=== PATIENT | male | born 1970 | race Caucasian/White ===

== ENCOUNTER 2019-01-16 12:34 | Outpatient (REF) | payer BC, SELFPAY ==
[2019-01-17 13:06] LABS: Chlamydia Result Negative; GC Result Negative; Specimen Description URINE
== END 2019-01-16 12:54 ==
LOC: LBN 12:34
PROVIDERS: PCP Family Medicine; Visit Provider Family Medicine
DX: R30.0 Dysuria (principal); N39.0 Urinary tract infection, site not specified; Z11.3 Encounter for screening for infections with a predominantly sexual mode of transmission
CPT/HCPCS: 87491; 87591; 87086

== ENCOUNTER 2019-01-19 13:47 | Outpatient (CLI) | payer BC, SELFPAY ==
[2019-01-19 15:11] LABS: Bilirubin Negative (Negative); Blood Negative (Negative); Clarity Clear (Clear); Glucose Negative (Negative); Ketones Negative (Negative); Leukocyte Esterase Negative (Negative); Nitrite Negative (Negative); Specific Gravity >= 1.030 (1.005-1.025); Urobilinogen 0.2 EU/dL (Up TO 0.2)
[2019-01-19 15:37] LABS: Bacteria Rare HPF (Negative); C & S Indicated? Yes; Crystals Negative HPF (Negative); Epithelial Cells Negative HPF (Negative); Mucus Heavy (Negative); WBC 20-50 HPF (0-5)
[2019-01-20 10:32] LABS: Lyme Ab w Rflx to Lyme Confirm Negative
[2019-01-20 12:43] LABS: HIV-1/2 Ag & Ab Screen Negative (NEGAT)
[2019-01-21 22:52] LABS: West Nile Virus PCR, P Negative (Negative)
[2019-01-22 15:47] LABS: Anaplasma phagocytophilum Negative (Negative); B. miyamotoi PCR Negative (Negative); Babesia divergens/MO-1 Negative (Negative); Babesia duncani Negative (Negative); Babesia microti Negative (Negative); Ehrlichia chaffeensis Negative (Negative); Ehrlichia ewingii/canis Negative (Negative); Ehrlichia muris eauclairensis Negative (Negative)
== END 2019-01-19 14:07 ==
PROVIDERS: Family Medicine; PCP Family Medicine; Visit Provider Nurse Practitioner Family
DX: R53.83 Other fatigue (principal); M79.10 Myalgia, unspecified site; R30.0 Dysuria; Z11.4 Encounter for screening for human immunodeficiency virus [HIV]
CPT/HCPCS: 36415; 86652; 87389; 87798; 81003; 81015; 86618; 87086

== ENCOUNTER 2019-03-28 10:18 | Outpatient (CLI) | payer BC, SELFPAY ==
[2019-03-28 13:17] LABS: Calculated LDL 104 mg/dL; Cholesterol 161 mg/dL (<200); HDL Cholesterol 42 mg/dL (40-60); Triglyceride 75 mg/dL (<150)
== END 2019-03-28 10:38 ==
PROVIDERS: PCP Family Medicine; Visit Provider Family Medicine
DX: Z00.00 Encounter for general adult medical examination without abnormal findings (principal); Z13.220 Encounter for screening for lipoid disorders
CPT/HCPCS: 36415; 80061

== ENCOUNTER 2019-09-15 03:44 | Outpatient (CLI) | payer BC, SELFPAY ==
--- NOTE | 2019-09-15 08:11 | DI.RAD_ITS ---
EXAM: XR KNEE LT 3V AP,LAT,SADNY CLINICAL HISTORY: LEFT KNEE PAIN,M25.562 TECHNIQUE: COMPARISON: No exams were available for comparison FINDINGS: Three views were obtained. There is an ACL reconstruction with anchor screws in femur and tibia. Th ere is deformity of the inferior pole of the patella which appears to be chronic. Cartilaginous join t spaces appear fairly well maintained. Minimal scalloping of the the medial and lateral femoral con dyles noted which may be on a degenerative basis although the cartilaginous joint spaces appear fairl y well maintained. Minimal marginal osteophyte formation noted. IMPRESSION: Mild DJD.
== END 2019-09-15 04:04 ==
PROVIDERS: PCP Family Medicine; Visit Provider Family Medicine
DX: M25.562 Pain in left knee (principal); M17.12 Unilateral primary osteoarthritis, left knee
CPT/HCPCS: 73562

== ENCOUNTER 2019-10-12 09:35 | Outpatient (CLI) | payer BC, SELFPAY ==
--- NOTE | 2019-10-12 09:30 | DI.RAD_ITS ---
EXAM: XR KNEE RT 4V AP,LAT,SANDY,PAT CLINICAL HISTORY: right knee pain. TECHNIQUE: 2D digital imaging was performed. COMPARISON: CR XR KNEE LT 3V AP,LAT,SANDY from 09/15/2019 FINDINGS: BONES: No acute fracture is present. No bony destructive lesion is seen. JOINTS: The knee is normally aligned. No joint effusion is seen. SOFT TISSUE: Normal. IMPRESSION: Unremarkable radiographs of the right knee. DATA REPOSITORY: RADIATION DOSE DELIVERED:
== END 2019-10-12 09:55 ==
PROVIDERS: PCP Family Medicine; Referring Provider Family Medicine; Visit Provider Physician Assistant
DX: M25.561 Pain in right knee (principal)
CPT/HCPCS: 73564

== ENCOUNTER 2019-10-23 01:20 | Outpatient (CLI) | payer BC, SELFPAY ==
--- NOTE | 2019-10-23 06:00 | DI.MRI_ITS ---
EXAM: MR LOWER JOINT RT WO CLINICAL HISTORY: ?ACL TEAR, INTERNAL DERANGEMENT RT KNEE,PAIN,M23.91. TECHNIQUE: Multiplanar multisequence MRI was performed. COMPARISON: No exams were available for comparison FINDINGS: MR examination knee was performed according to the usual protocol. There is small knee joint effusion. There is tiny Yeung's cyst Patellofemoral joint and extensor mechanism: There is mildly abnormal signal of the patellar articula r cartilage with minimal cartilage surface irregularity at the apex and on the medial facet with hoang esponding minimal articular cartilage changes of trochlea. No significant bony signal abnormality of the patella. The medial and lateral retinacula appear intact. The suprapatellar and infrapatellar fat pads are unremarkable. No significant quadriceps tendon or patellar tendon abnormality. Medial tibiofemoral joint: No significant articular cartilage abnormality. Medial meniscus and attac hments appear normal. No significant collateral ligament complex injury. Lateral tibiofemoral joint: Articular cartilage is unremarkable. No tear of the lateral meniscus or attachments. No significant lateral collateral ligament complex injury. Cruciate ligaments: Minimal signal change at the tibial bony attachment of the ACL mildly abnormal si gnal in ACL adjacent to femoral attachment with perhaps minimal cystic change. No significant ACL te ar. No significant PCL tear. Small posterior ganglion cysts noted adjacent to tibial attachment of PCL do not appear to impinge or deform the PCL and there is normal intra ligamentous signal. IMPRESSION: No significant internal derangement. No ACL tear. Mild degenerative articular cartilage changes at the patellofemoral joint. DATA REPOSITORY:
== END 2019-10-23 01:40 ==
PROVIDERS: PCP Family Medicine; Visit Provider Student in an Organized Health Care Education/Training Program
DX: M17.11 Unilateral primary osteoarthritis, right knee; M67.461 Ganglion, right knee
CPT/HCPCS: 73721

== ENCOUNTER 2021-05-13 10:35 | Outpatient (CLI) | payer BC, SELFPAY ==
--- NOTE | 2021-05-13 10:15 | DI.RAD_ITS ---
Exam(s) XR KNEE LT 3V AP,LAT,SANDY EXAM: XR KNEE LT 3V AP,LAT,SANDY CLINICAL HISTORY: LEFT KNEE PAIN TECHNIQUE: COMPARISON: CR XR KNEE RT 4V AP,LAT,SANDY,PAT from 10/12/2019 FINDINGS: Three views were obtained. There is a prior ACL reconstruction with anchors in place in the distal f emur and proximal tibia. Cartilaginous joint spaces of the knee appear fairly well maintained. Ther e is a prominent inferior patellar enthesophyte. No other significant bony abnormality seen. IMPRESSION: No evidence of acute process. RADIATION DOSE DELIVERED: Total DLP
== END 2021-05-13 10:36 | disposition home or self-care (01) ==
LOC: DIORS 10:36
PROVIDERS: PCP Family Medicine; Referring Provider Family Medicine; Visit Provider Student in an Organized Health Care Education/Training Program
DX: M25.562 Pain in left knee (principal); Z98.890 Other specified postprocedural states
CPT/HCPCS: 73562

== ENCOUNTER → 2021-05-26 03:11 | Outpatient (CLI) | payer BC, SELFPAY ==
--- NOTE | 2021-05-26 06:30 | DI.MRI_ITS ---
Exam(s) MR LOWER JOINT LT WO EXAM: MR LOWER JOINT LT WO CLINICAL HISTORY: Left knee instability,PAIN,? ACL,M25.562,SPRAIN,S83.511A. TECHNIQUE: Multiplanar multisequence MRI was performed. COMPARISON: CR XR KNEE LT 3V AP,LAT,SANDY from 05/13/2021 FINDINGS: BONES: There is no fracture or contusion pattern. Hardware related to ACL repair in distal femur and proximal tibia with surrounding artifact. JOINTS: Articular cartilage is unremarkable. A small effusion is present. TENDONS: Extensor mechanism: Unremarkable. Medial retinaculum: Unremarkable. Lateral retinaculum: Unremarkable. Popliteus: Unremarkable. MUSCLES: Unremarkable. MENISCI: The medial meniscus is unremarkable. The lateral meniscus is unremarkable. SOFT TISSUES: Unremarkable. LIGAMENTS: Anterior Cruciate: Status post ACL repair which appears intact. Posterior Cruciate: Unremarkable. Medial Collateral:Unremarkable. Lateral Collateral: Unremarkable. IMPRESSION: Intact ACL graft. No evidence of meniscal tear or ligament tear. Small joint effusion. DATA REPOSITORY:
== END ==
PROVIDERS: PCP Family Medicine; Visit Provider Student in an Organized Health Care Education/Training Program
DX: M25.562 Pain in left knee (principal); M25.362 Other instability, left knee; M25.462 Effusion, left knee; Z98.890 Other specified postprocedural states
CPT/HCPCS: 73721

== ENCOUNTER 2021-07-17 19:10 | Outpatient (REF) | payer BC, SELFPAY ==
[2021-07-18 11:38] LABS: COVID-19 RT-PCR UVMMC Result Negative (Negative)
== END 2021-07-17 19:11 | disposition home or self-care (01) ==
LOC: LBN 19:10
PROVIDERS: PCP Family Medicine; Visit Provider Nurse Practitioner Family
DX: Z20.822 Contact with and (suspected) exposure to COVID-19 (principal)
CPT/HCPCS: U0003

== ENCOUNTER 2021-07-22 08:41 | Emergency (ER) | payer BC, SELFPAY ==
[2021-07-22] VITALS (14 sets, daily range): BP systolic 129–147; BP diastolic 75–96; PULSE 60–84; RESP 12–25; TEMP 36.4–36.7; O2SAT 97–100
--- NOTE | 2021-07-22 08:30 | DI.RAD_ITS ---
Exam(s) XR CHEST 2V PA LATERAL EXAM: XR CHEST 2V PA LATERAL CLINICAL HISTORY: cough, weakness, r/o pneumonia. TECHNIQUE: 2D digital imaging was performed. COMPARISON: CR ABD FLAT UPRIGHT PA CHEST from 01/23/2011 FINDINGS: 2 views: Heart size is normal. The mediastinum is not widened. Lungs are clear. No infiltrates nor pleural effusions. IMPRESSION: No acute pulmonary findings. DATA REPOSITORY: RADIATION DOSE DELIVERED:
--- NOTE | 2021-07-22 08:37 | ED.GENADUL_ITS ---
Discharge Plan Disposition Patient Disposition: [facility] Condition: Critical Discharge Details Clinical Impression: Acute ischemic left MCA stroke Primary Care Provider: Jake Love ED Provider: Carly Hurtado Home Meds and New Rx's Prescriptions: No Action albuterol sulfate [ProAir HFA] 90 mcg/actuation HFA aerosol inhaler 2 puff Inhalation Q4H PRN Qty: 1 6RF Discharge Data Discharge Date/Time-TO BE ENTERED AT DEPARTURE: 07/22/21 10:08 Medical Decision Making 09 -- 51-year-old male with no significant past medical history who presents with right-sided weakness, drooling, crying noted when son awoken at 740 this morning. Last known normal around 8 PM last night. It was reported that he recently returned from [place] 4 days ago and developed an upper respiratory infection since then. Records note that he also was seen at the PCP office for a tick bite 2 weeks ago but was thought to be unlikely related to Lyme due to short duration of tick present and no report of rash. It was also reported that he told work yesterday of right eyes blurry vision. EMS reported that he is currently nonverbal but protecting his airway. His vitals are within normal limits and has notable right-sided weakness and crying. Patient seen in the hallway immediately on arrival with EMS. He is awake and alert and able to follow some commands but not all. He has mild right-sided facial droop. He has right-sided weakness and holding right arm close to body. He is able to lift left leg on command but unable to squeeze left hand on command. Positive gag reflex. Patient sent immediately to radiology and radiologist noted a potential evolving left MCA stroke. Will send for stat CTA head and neck. Pain score of 19 mostly on right-sided facial palsy, right upper arm and leg weakness and global aphasia. 0940 --Case discussed with [facility] neurology Dr. Joyce who accepts patient transfer to the ED. Would like 300 mg of aspirin still and IV fluids. Discussed that patient has been protecting his airway and feeling some commands. No indication for intubation at this time. Family now at bedside and they have been informed. Patient has been informed of his diagnosis and appears to understand and is very tearful and crying but still unable to speak. Labs reviewed and unremarkable. Normal white blood cell count. Normal electrolytes. Troponin negative. CTA head and neck notes: IMPRESSION: 1. In this patient who has evidence of nonhemorrhagic infarct in the territory of the left middle cerebral artery, there is poor appearance of the contrast column in the upper neck.? Although the left carotid bifurcation appears unremarkable, as does the proximal left ICA) at the, there is poor contrast column seen in the upper aspect of the left ICA in the neck and skull base.? There is reconstitution of flow higher up in the cavernous sinus..? Recommend follow-up MRI/MRA. Images pushed to [facility] for review. 1000 -- EMS here to transport patient. Airway remains intact and he is hemodynamically stable. Medical Records Medical records reviewed: Yes I reviewed the patient's medical records. Imaging Data Radiologic Study: Radiologist's impression: CT HEAD - STROKE PROTOCOL CLINICAL HISTORY: ? R sided weakness, r/o acute cva. ? TECHNIQUE:? Imaging Protocol: Axial computed tomography images with coronal and sagittal reformatted images were created and reviewed COMPARISON:? No exams were available for comparison FINDINGS: ?There are no skull fractures.? There is a fluid level in left maxillary sinus consistent with acute sinusitis.? Remainder of the paranasal sinuses are clear as are the mastoid air cells. There is no evidence of intracranial hemorrhage, intra or extra-axial. There is subtle abnormal area of hypodensity in the territory left middle cerebral artery above the sylvian fissure.? There is also a hyperdense distal branch of the middle cerebral artery in this region which may indicate the presence of intraluminal thrombus. IMPRESSION: There findings consistent with nonhemorrhagic infarct in the territory left middle cerebral artery.? There is hyperdensity in distal branch of the left middle cerebral artery within the sylvian fissure region, possibly indicating culprit intraluminal thrombus at this level. XR CHEST 2V PA ? LATERAL CLINICAL HISTORY: ? cough, weakness, r/o pneumonia. ? TECHNIQUE:? 2D digital imaging was performed. COMPARISON:? CR ABD FLAT UPRIGHT PA CHEST from 01/23/2011 FINDINGS: 2 views: Heart size is normal.? The mediastinum is not widened. Lungs are clear.? No infiltrates nor pleural effusions. IMPRESSION: No acute pulmonary findings. CT BRAIN ? NECK CTA CLINICAL HISTORY: ? possible L MCA stroke, r/o occlusion. ? TECHNIQUE:? Imaging Protocol:? Axial CT angiography was performed with multi- slice acquisition and multi-planar and/or 3D reconstructions. CONTRAST MATERIAL:? Intravenous: Omnipaque 350 Contrast volume:structured data in ml COMPARISON:? CT CT HEAD - STROKE PROTOCOL from 07/22/2021 FINDINGS: CTA Neck W: Aortic arch anatomy: The aortic arch anatomy is conventional. Anterior circulation: Both common carotid arteries are patent. On the right side there is no significant atherosclerotic narrowing at the level the carotid bulb and proximal internal carotid artery in the right ICA is tortuous in the neck but patent. On the left side the carotid bifurcation is patent as is the proximal left ICA without significant stenosis.? However, in the upper neck the contrast column is thin and faint in the upper left ICA as well as within the left carotid canal. Posterior circulation: Vertebral arteries arising conventional fashion off the subclavian arteries.? Within the foramen transverse area in the left vertebral artery is dominant.? At the skull base the dominant left vertebral artery is the main contributor to the formation of the basilar artery. CTA Brain W: Anterior circulation: Right internal carotid artery is patent in the skull base and cavernous sinus.? Supraclinoid aspect is patent.? No aneurysm.? The left internal carotid artery exhibits better flow in the cavernous sinus than in the left carotid canal and the left cavernous sinus is patent as is the supraclinoid aspect. Both A1 segments are patent.? Both anterior cerebral arteries are patent.? There is no aneurysm at the level of the anterior communicating artery.. Right middle cerebral artery appears patent.? Left middle cerebral artery also appears patent. Posterior circulation: Basilar artery ascends in the midline.? Distally gives off superior cerebellar arteries and above this level terminates as patent left posterior cerebral artery.? Right posterior cerebral artery also receives significant flow from posterior communicating artery on the right side of the [id number].? There is no aneurysm of the tip of the basilar artery nor elsewhere in the [id number]. CT BRAIN: There is no evidence of intracranial hemorrhage, mass effect, or shift of midline structures.? There are no extra-axial fluid collections.? Ventricles are not enlarged or shifted.? There are no ring enhancing lesions in the brain and no abnormal meningeal enhancement. There is area of hypodensity in territory left middle cerebral artery consistent with developing infarct in the territory left middle cerebral artery. IMPRESSION: 1. In this patient who has evidence of nonhemorrhagic infarct in the territory of the left middle cerebral artery, there is poor appearance of the contrast column in the upper neck.? Although the left carotid bifurcation appears unremarkable, as does the proximal left ICA) at the, there is poor contrast column seen in the upper aspect of the left ICA in the neck and skull base.? There is reconstitution of flow higher up in the cavernous sinus..? Recommend follow-up MRI/MRA. Lab Data Lab results reviewed: Yes I reviewed the patient's lab results. Labs: Laboratory Tests Range/Units 07/22/21 07/22/21 09:05 09:05 WBC (4.4-10.8) 10^3/uL 10.72 RBC (4.36-5.78) 10^6/uL 4.93 Hgb (13.5-17.5) g/dL 14.6 Hct (40.0-50.0) % 43.4 MCV (80-95) fL 88 MCH (27.0-33.0) pg 29.6 MCHC (32.0-36.0) % 33.6 RDW (11.8-14.1) % 12.3 Plt Count (130-400) 10^3/uL 259 MPV (8.0-11.0) fL 9.2 Immature Gran % 0.5 Neutrophils % 78.9 Lymphocytes % 12.9 Monocytes % 6.1 Eosinophils % 1.2 Basophils % 0.4 Nucleated RBC % (0.0-0.3) % 0.0 Absolute Neutrophils (1.2-6.7) 10^3/uL 8.47 H Absolute Lymphocytes (1.2-3.4) 10^3/uL 1.38 Absolute Monocytes (0.1-0.8) 10^3/uL 0.65 Absolute Eosinophils (0.0-0.7) 10^3/uL 0.13 Absolute Basophils (0.0-0.2) 10^3/uL 0.04 Sodium (136-145) mmol/L 140 Potassium (3.5-5.1) mmol/L 3.7 Chloride (98-107) mmol/L 105 Carbon Dioxide (21.0-32.0) mmol/L 26.9 Anion Gap (3-11) mmol/L 8.1 BUN (7-18) mg/dL 23 H Creatinine (0.70-1.30) mg/dL 1.1 Estimated GFR/1.73 m2 (mL/min/1.73m2) >= 60.00 Glucose (74-106) mg/dL 104 Calcium (8.5-10.1) mg/dL 8.1 L Magnesium (1.8-2.4) mg/dL 2.1 Total Bilirubin (0.2-1.0) mg/dL 0.4 AST (15-37) U/L 24 ALT (16-63) U/L 35 Alkaline Phosphatase (46-116) U/L 98 Troponin I (<or=60) ng/L < 50 Total Protein (6.4-8.2) g/dL 7.0 Albumin (3.4-5.0) g/dL 3.8 ECG Data Attestation: I personally reviewed and interpreted this ECG (s) as follows: Interpretation: rate of 64, sinus, normal axis, no STEMI. HPI General Mode of arrival: EMS . Date/Time Provider Initiated Documentation: 07/22/21 08:42 . Limitations to Documentation: altered mental status and physical limitation . Information obtained by: family and EMS . HPI Narrative: Patient is a 51-year-old male with no significant past medical history who presents as a stroke alert per EMS. EMS reported that children called 911 for altered mental status, drooling and right-sided weakness. Son reports that he checked on patient at 7:45 AM to wake him and he was unable to speak and had right-sided weakness and was crying. He states at that time he called 911. Ex- is also in the emergency department who notes that patient drove with his 2 sons to [place] for spring break last week and returned 4 days ago. He was seen at the PCP office 5 days ago for upper respiratory infection symptoms. Son states he saw little round red pills near the patient this morning but states t here were only a couple missing and he thinks. He was taking them for his cough and cold symptoms. Ex- reports that she spoke to patient yesterday and his voice sounded hoarse. She also reports that his coworker told her that he had complained of right eye blurry vision yesterday. Son states that patient was feeling sick yesterday with cough and cold symptoms but there was no report of weakness or difficulty speaking. He states he was his normal self at 8 PM last night when he went to bed. There is no report of any head injury. There is no report of fever, vomiting, diarrhea or drug use. Related Data Home Medications Medication Instructions Recorded Confirmed albuterol sulfate 90 mcg/actuation 2 puff INHALATION Q4H PRN #1 01/16/19 07/17/21 aerosol inhaler (ProAir HFA) inhaler Previous Rx's Medication Instructions Recorded albuterol sulfate 90 mcg/actuation 2 puff INHALATION Q4H PRN #1 01/16/19 aerosol inhaler (ProAir HFA) inhaler Allergies Allergy/AdvReac Type Severity Reaction Status Date / Time cat dander Allergy Intermediate asthma Verified 07/17/21 11:15 like reaction feathers Allergy Intermediate asthma Verified 07/17/21 11:15 like reaction General Stated Complaint: AMS/LOC WILDER: 2 Review of Systems Unobtainable due to mental status Constitutional Constitutional: Denies chills, Denies excessive sweating, Denies fatigue, Denies fever(s), Denies weakness and Denies weight loss Eyes Eyes: Reports system reviewed and no additional complaints, except as documented and Denies blurry vision ENT Ears, Nose, Mouth, and Throat: Denies vertigo, Denies dizziness, Denies otalgia, Denies nasal congestion, Denies sore throat and Denies throat swelling Cardiovascular Cardiovascular: Denies chest pain, Denies syncope, Denies rapid heart rate and Denies dyspnea Respiratory Respiratory: Denies chest congestion, Denies cough, Denies pain on inspiration and Denies dyspnea Gastrointestinal Gastrointestinal: Denies abdominal pain, Denies diarrhea and Denies vomiting Genitourinary Genitourinary: Denies hematuria, Denies dysuria and Denies flank pain Musculoskeletal Musculoskeletal: Denies back pain and Denies joint swelling Integumentary/Breasts Skin/Breast: Denies lesions and Denies rash Neurologic Neurologic: Denies behavioral changes, Denies confusion, Denies vertigo, Denies dizziness, Denies syncope, Denies localized weakness and Denies weakness Psychiatric Psychiatric: Denies behavioral changes, Denies confusion and Denies depression Endocrine Endocrine: Denies excessive sweating and Denies fatigue Hematologic/Lymphatic Hematologic/Lymphatic: Denies easy bruising and Denies lymphadenopathy Allergic/Immunologic Allergic/Immunologic: Denies throat swelling PFSH All Active Problems (Updated 07/22/21 @ 09:55 by Carly Hurtado DO) Acute ischemic left MCA stroke (Acute) Left ACL tear (Acute) Tick bite (Acute) Fish customer success manager/Forester, 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 Emiliano PALACIOS Family History Father , 84 Stroke Brother Asthma Maternal Grandfather , 75 Neoplasm Paternal Grandfather Stroke Neoplasm Maternal Grandmother , 86 Neoplasm Paternal Grandmother , 87 Stroke Mother No problems noted. Sister No problems noted. Sister No problems noted. Sister No problems noted. Brother No problems noted. Brother No problems noted. Son No problems noted. Son No problems noted. Social History Smoking/Tobacco Use Status: Current-Occasional Tobacco Type: cigarettes Second Hand Exposure: Yes Smoking risk assessment performed?: Yes Alcohol Intake: current Alcohol Intake frequency: a few times a week Alcohol type: beer, wine and hard liquor Drug use: Rarely Substance use type: marijuana Caregiver/Support person: No Household members: children Housing: house Communication Needs: None Pets and animals: Yes Pets and animals: dog(s) Sexually active: No Do you think of yourself as: straight/heterosexual Current gender identity: male What is your relationship status?: How often do you talk on the phone with friends or family?: three or more times per week How often do you get together with friends or relatives?: three or more times per week How often do you attend jewish or moravian services?: 1-3 times per year Do you belong to any clubs or organized social groups?: yes Panel score (0-1 are the most socially isolated patients): 2 What type of physical activity do you participate in: walking Duration: 30-45 minutes/day Frequency: daily Petrona/Presybeterian: agnostic Special petrona needs: No Seatbelt use: always Drive intox or ride w/intox full service vending driver: No Do you feel safe at home: Yes Do you feel safe in your relationship?: Yes Exam Const General: cooperative and other (tearful) Orientation: alert and awake HENMT Head: normal to inspection Ears: hearing grossly normal bilaterally, external ears normal and TM's normal bilaterally General nose exam: external nose normal Face and sinus: normal facial exam Mouth: oral mucosae normal and other (+ gag reflex) Teeth and gingiva: dentition normal Throat: posterior oropharynx normal Eyes General: appearance normal, both eyes and all related structures Eyelids: eyelids normal Pupils: PERRL EOM: EOM intact bilaterally Neck Neck: normal visual inspection Lymphatic: no lymphadenopathy noted Chest Chest: normal inspection of the chest Resp Effort & Inspection: normal respiratory effort and able to speak in complete sentences Auscultation: clear to auscultation bilaterally Cardio Rate: regular rate Rhythm: regular rhythm GI Inspection: normal to inspection Palpation: soft, not firm, no guarding, no hepatosplenomegaly, no masses and nontender Auscultation: normal bowel sounds Back/Spine/Pelvis Back: no CVA tenderness Skin General skin exam: no rashes or lesions noted Neuro General: patient alert and patient awake Cognition: normal cognition Other: Able to follow some commands. Able to close eyes on command. PERRLA. Able to lift left arm and leg spontaneously. Unable to lift right arm and right leg. Holding right arm close to body. Extrem General: normal to inspection, full ROM and capillary refill normal Psych Appearance: grossly normal Mental Status: mental status grossly normal Speech and Movement: speech and movement normal Affect: normal affect Thought Process: normal Critical Care Time Critical Care Time Critical Care Time: Yes Total Critical Care Time: 70 Attestation: I spent 70 minutes of critical care time with this patient. This does not include time spent on separately reported billable procedures.
--- NOTE | 2021-07-22 08:46 | DI.CT_ITS ---
Exam(s) CT HEAD - STROKE PROTOCOL EXAM: CT HEAD - STROKE PROTOCOL CLINICAL HISTORY: R sided weakness, r/o acute cva. TECHNIQUE: Imaging Protocol: Axial computed tomography images with coronal and sagittal reformatted images were created and reviewed COMPARISON: No exams were available for comparison FINDINGS: There are no skull fractures. There is a fluid level in left maxillary sinus consistent with acute sinusitis. Remainder of the paranasal sinuses are clear as are the mastoid air cells. There is no evidence of intracranial hemorrhage, intra or extra-axial. There is subtle abnormal area of hypodensity in the territory left middle cerebral artery above the s ylvian fissure. There is also a hyperdense distal branch of the middle cerebral artery in this regio n which may indicate the presence of intraluminal thrombus. IMPRESSION: There findings consistent with nonhemorrhagic infarct in the territory left middle cerebral artery. There is hyperdensity in distal branch of the left middle cerebral artery within the sylvian fissure region, possibly indicating culprit intraluminal thrombus at this level. Findings called to ER provider. RADIATION DOSE DELIVERED: 774.85mGy.cm Total DLP DATA REPOSITORY: All CT scans at this facility are submitted to the National Radiology Data Registry (NRDR) Dose Index Registry (DIR) with the [employer] (ACR). RADIATION OPTIMIZATION: All CT scans at this facility use at least one of these dose optimization te chniques: automated exposure control; mA and/or kV adjustment per patient size (includes targeted exa ms where dose is matched to clinical indication); or iterative reconstruction.
--- NOTE | 2021-07-22 09:00 | RT.EKG_ITS ---
APPROVED REPORT Exam: Resting ECG Reason for Exam: stroke symptoms Patient Location: E HR:64 bpm ECG Measurements Heart Rate [address] 170 P 48 QRSd 104 QRS 26 QT 415 T 29 QTc 428 Conclusion Sinus rhythm...normal P axis, V-rate 60- 99. Sinus. Normal axis. No STEMI. I have reviewed and interpreted ECG and agree with software generated interpretation.
[2021-07-22 09:17] LABS: Abs Immature Grans 0.05 10^3/uL (0.0-0.06); Absolute Basophil Count 0.04 10^3/uL (0.0-0.2); Absolute Eosinophil Count 0.13 10^3/uL (0.0-0.7); Absolute Lymphocyte Count 1.38 10^3/uL (1.2-3.4); Absolute Monocyte Count 0.65 10^3/uL (0.1-0.8); Absolute Neutrophil Count 8.47 10^3/uL (1.2-6.7); Basophils % 0.4; Eosinophils % 1.2; HCT 43.4 % (40.0-50.0); HGB 14.6 g/dL (13.5-17.5); Immature Grans % 0.5; Lymphocytes % 12.9; MCH 29.6 pg (27.0-33.0); MCHC 33.6 % (32.0-36.0); MCV 88 fL (80-95); MPV 9.2 fL (8.0-11.0); Monocytes % 6.1; Neutrophils % 78.9; Platelet Count 259 10^3/uL (130-400); RBC 4.93 10^6/uL (4.36-5.78); RDW 12.3 % (11.8-14.1); RDW-SD 40.3 fL; WBC 10.72 10^3/uL (4.4-10.8)
--- NOTE | 2021-07-22 09:33 | DI.CT_ITS ---
Exam(s) CT BRAIN NECK CTA EXAM: CT BRAIN NECK CTA CLINICAL HISTORY: possible L MCA stroke, r/o occlusion. TECHNIQUE: Imaging Protocol: Axial CT angiography was performed with multi-slice acquisition and mu lti-planar and/or 3D reconstructions. CONTRAST MATERIAL: Intravenous: Omnipaque 350 Contrast volume:structured data in ml COMPARISON: CT CT HEAD - STROKE PROTOCOL from 07/22/2021 FINDINGS: CTA Neck W: Aortic arch anatomy: The aortic arch anatomy is conventional. Anterior circulation: Both common carotid arteries are patent. On the right side there is no significant atherosclerotic narrowing at the level the carotid bulb and proximal internal carotid artery in the right ICA is tortuous in the neck but patent. On the left side the carotid bifurcation is patent as is the proximal left ICA without significant st enosis. However, in the upper neck the contrast column is thin and faint in the upper left ICA as we ll as within the left carotid canal. Posterior circulation: Vertebral arteries arising conventional fashion off the subclavian arteries. Within the foramen dominguez sverse area in the left vertebral artery is dominant. At the skull base the dominant left vertebral artery is the main contributor to the formation of the basilar artery. CTA Brain W: Anterior circulation: Right internal carotid artery is patent in the skull base and cavernous sinus. Supraclinoid aspect i s patent. No aneurysm. The left internal carotid artery exhibits better flow in the cavernous sinus than in the left carotid canal and the left cavernous sinus is patent as is the supraclinoid aspect. Both A1 segments are patent. Both anterior cerebral arteries are patent. There is no aneurysm at th e level of the anterior communicating artery.. Right middle cerebral artery appears patent. Left middle cerebral artery also appears patent. Posterior circulation: Basilar artery ascends in the midline. Distally gives off superior cerebellar arteries and above thi s level terminates as patent left posterior cerebral artery. Right posterior cerebral artery also re ceives significant flow from posterior communicating artery on the right side of the [id number] . There is no aneurysm of the tip of the basilar artery nor elsewhere in the [id number]. CT BRAIN: There is no evidence of intracranial hemorrhage, mass effect, or shift of midline structures. There are no extra-axial fluid collections. Ventricles are not enlarged or shifted. There are no ring enh ancing lesions in the brain and no abnormal meningeal enhancement. There is area of hypodensity in territory left middle cerebral artery consistent with developing infa rct in the territory left middle cerebral artery. IMPRESSION: 1. In this patient who has evidence of nonhemorrhagic infarct in the territory of the left middle cer ebral artery, there is poor appearance of the contrast column in the upper neck. Although the left c arotid bifurcation appears unremarkable, as does the proximal left ICA) at the, there is poor contras t column seen in the upper aspect of the left ICA in the neck and skull base. There is reconstitutio n of flow higher up in the cavernous sinus.. Recommend follow-up MRI/MRA. Findings discussed with ER provider. RADIATION DOSE DELIVERED: 331.37mGy.cm Total DLP DATA REPOSITORY: All CT scans at this facility are submitted to the National Radiology Data Registry (NRDR) Dose Index Registry (DIR) with the [employer] (ACR). RADIATION OPTIMIZATION: All CT scans at this facility use at least one of these dose optimization te chniques: automated exposure control; mA and/or kV adjustment per patient size (includes targeted exa ms where dose is matched to clinical indication); or iterative reconstruction.
[2021-07-22 09:38] LABS: ALT 35 U/L (16-63); AST 24 U/L (15-37); Albumin 3.8 g/dL (3.4-5.0); Alkaline Phosphatase 98 U/L (46-116); Anion Gap 8.1 mmol/L (3-11); BUN 23 mg/dL (7-18); Bilirubin, Total 0.4 mg/dL (0.2-1.0); CO2 26.9 mmol/L (21.0-32.0); CREATININE 1.1 mg/dL (0.70-1.30); Calcium 8.1 mg/dL (8.5-10.1); Chloride 105 mmol/L (98-107); Glucose 104 mg/dL (74-106); Magnesium 2.1 mg/dL (1.8-2.4); Potassium 3.7 mmol/L (3.5-5.1); Sodium 140 mmol/L (136-145); Troponin I < 50 ng/L (<or=60)
[2021-07-22] MEDS: Normal Saline 1,000 ML 1000 ML IV (09:46)
[2021-07-22] MEDS: Aspirin 300 MG SUPP PR (09:46)
[2021-07-22 10:18] LABS: COVID-19 PCR Negative (Negative); Influenza A PCR Negative (Negative); Influenza B PCR Negative (Negative); RSV PCR Negative (Negative)
--- NOTE | 2021-07-22 10:54 | NUR.NOTE ---
Nursing Note: COVID result faxed to [facility]. Mary Dykes
[2021-07-23 10:53] LABS: Lyme Ab w Rflx to Lyme Confirm Negative (Negative)
[2021-07-24 22:23] LABS: Anaplasma phagocytophilum Negative (Negative); B. miyamotoi PCR Negative (Negative); Babesia divergens/MO-1 Negative (Negative); Babesia duncani Negative (Negative); Babesia microti Negative (Negative); Ehrlichia chaffeensis Negative (Negative); Ehrlichia ewingii/canis Negative (Negative); Ehrlichia muris eauclairensis Negative (Negative)
== END 2021-07-22 10:08 | disposition short-term general hospital (02) ==
LOC: ER 11:43
PROVIDERS: Emergency Provider Physician Assistant; PCP Family Medicine
DX: I63.512 Cerebral infarction due to unspecified occlusion or stenosis of left middle cerebral artery (principal); R29.810 Facial weakness; G81.91 Hemiplegia, unspecified affecting right dominant side; R47.01 Aphasia; Z72.0 Tobacco use
CPT/HCPCS: 36415; 36416; 70496; 70498; 80053; 82962; 87637; 87798; 93005; 96360; 99291; 70450; 71046; 83735; 84484; 85025; 86618; 93010

== ENCOUNTER 2022-06-04 19:09 | Outpatient (REF) | payer BC, SELFPAY ==
[2022-06-04 21:14] LABS: Bilirubin Negative (Negative); Blood Negative (Negative); Clarity Clear (Clear); Glucose Negative (Negative); Ketones Negative (Negative); Leukocyte Esterase Negative (Negative); Nitrite Negative (Negative); Urobilinogen 0.2 mg/dL (Up to 0.2)
== END 2022-06-04 19:10 | disposition home or self-care (01) ==
LOC: LBN 19:09
PROVIDERS: PCP Family Medicine; Visit Provider Physician Assistant
DX: R35.0 Frequency of micturition (principal); R39.15 Urgency of urination
CPT/HCPCS: 81003

== ENCOUNTER 2022-10-13 03:29 | Outpatient (CLI) | payer BC, SELFPAY ==
[2022-10-14 10:20] LABS: Lyme Ab w Rflx to Lyme Confirm Negative (Negative)
[2022-10-16 17:39] LABS: Anaplasma phagocytophilum Negative (Negative); B. miyamotoi PCR Negative (Negative); Babesia divergens/MO-1 Negative (Negative); Babesia duncani Negative (Negative); Babesia microti Negative (Negative); Ehrlichia chaffeensis Negative (Negative); Ehrlichia ewingii/canis Negative (Negative); Ehrlichia muris eauclairensis Negative (Negative)
== END 2022-10-13 03:30 | disposition home or self-care (01) ==
LOC: LBO 03:29
PROVIDERS: PCP Family Medicine; Visit Provider Family Medicine
DX: W57.XXXA Bitten or stung by nonvenomous insect and other nonvenomous arthropods, initial encounter (principal); Z11.9 Encounter for screening for infectious and parasitic diseases, unspecified
CPT/HCPCS: 36415; 87798; 86618

== ENCOUNTER 2022-12-19 15:50 | Outpatient (REF) | payer BC, SELFPAY ==
[2022-12-19 16:03] LABS: Abs Immature Grans 0.01 10^3/uL (0.0-0.06); Absolute Basophil Count 0.03 10^3/uL (0.0-0.2); Absolute Eosinophil Count 0.13 10^3/uL (0.0-0.7); Absolute Lymphocyte Count 1.46 10^3/uL (1.2-3.4); Absolute Neutrophil Count 3.55 10^3/uL (1.2-6.7); Basophils % 0.5; Eosinophils % 2.3; HCT 47.3 % (40.0-50.0); HGB 15.5 g/dL (13.5-17.5); Immature Grans % 0.2; Lymphocytes % 26.2; MCH 29.4 pg (27.0-33.0); MCHC 32.8 % (32.0-36.0); MCV 90 fL (80-95); MPV 9.8 fL (8.0-11.0); Monocytes % 7.2; Neutrophils % 63.6; Platelet Count 286 10^3/uL (130-400); RBC 5.27 10^6/uL (4.36-5.78); RDW 13.2 % (11.8-14.1); RDW-SD 43.8 fL; WBC 5.58 10^3/uL (4.4-10.8)
[2022-12-19 16:34] LABS: ALT 31 U/L (16-63); AST 22 U/L (15-37); Albumin 3.9 g/dL (3.4-5.0); Alkaline Phosphatase 73 U/L (46-116); Anion Gap 9.7 mmol/L (3-11); BUN 17 mg/dL (7-18); Bilirubin, Total 0.4 mg/dL (0.2-1.0); CO2 28.3 mmol/L (21.0-32.0); Calcium 9.5 mg/dL (8.5-10.1); Chloride 104 mmol/L (98-107); Estimated GFR 91.69 (mL/min/1.73m2); Glucose 99 mg/dL (74-106); Potassium 4.3 mmol/L (3.5-5.1); Sodium 142 mmol/L (136-145); Total Protein 6.9 g/dL (6.4-8.2)
[2022-12-20 11:00] LABS: ESR (LRH) 6 mm/hr
[2022-12-21 12:51] LABS: IgA 272 mg/dL (85-499); Interpretation (See Note); Tissue Transglutaminase IgA <1.2 U/mL (<4.0)
== END 2022-12-19 15:51 | disposition home or self-care (01) ==
LOC: LBN 15:50
PROVIDERS: PCP Family Medicine; Visit Provider Nurse Practitioner Family
DX: R19.7 Diarrhea, unspecified (principal)
CPT/HCPCS: 80053; 82784; 83516; 85652; 85025

== ENCOUNTER 2022-12-21 18:58 | Outpatient (REF) | payer BC, SELFPAY ==
[2022-12-21 18:36] LABS: C Diff PCR Negative (Negative)
[2022-12-23 12:43] LABS: Campylobacter PCR Negative (Negative); Salmonella PCR Negative (Negative); Shiga Toxin PCR Negative (Negative); Shigella/Enteroinvasive Ecoli Negative (Negative)
== END 2022-12-21 18:59 | disposition home or self-care (01) ==
LOC: LBN 18:58
PROVIDERS: PCP Family Medicine; Visit Provider Nurse Practitioner Family
DX: R19.7 Diarrhea, unspecified (principal)
CPT/HCPCS: 87329; 87493; 87505; 87177

== ENCOUNTER 2023-01-25 10:38 | Outpatient (REF) | payer BC, SELFPAY ==
[2023-01-28 16:30] LABS: Calprotectin <50.0 mcg/g
[2023-01-28 17:15] LABS: Pancreatic Elastase, F 224 mcg/g
== END 2023-01-25 10:39 | disposition home or self-care (01) ==
LOC: LBN 10:38
PROVIDERS: PCP Family Medicine; Visit Provider Nurse Practitioner Family
DX: R19.7 Diarrhea, unspecified (principal); R14.0 Abdominal distension (gaseous); R19.4 Change in bowel habit
CPT/HCPCS: 82656; 83993

== ENCOUNTER 2023-10-19 15:26 | Outpatient (REF) | payer BC, SELFPAY | END 2023-10-19 15:27 | disposition home or self-care (01) | LOC: LBN 15:26 | PROVIDERS: PCP Family Medicine; Visit Provider Nurse Practitioner Family | DX: L98.9 Disorder of the skin and subcutaneous tissue, unspecified (principal); B96.89 Other specified bacterial agents as the cause of diseases classified elsewhere | CPT/HCPCS: 87077; 87070; 87186; 87205 ==

== ENCOUNTER 2024-06-25 15:28 | Emergency (ER) | payer BC, SELFPAY ==
[2024-06-25] VITALS (35 sets, daily range): BP systolic 125–147; BP diastolic 72–98; PULSE 59–71; RESP 11–24; TEMP 37.1; O2SAT 92–100
--- NOTE | 2024-06-25 15:30 | DI.CT_ITS ---
Exam(s) CT BRAIN NECK CTA EXAM: CT BRAIN NECK CTA CLINICAL HISTORY: Stroke, Hx L. MCA/carotid, now R. eye vision badillo. TECHNIQUE: Imaging Protocol: Axial CT angiography was performed with multi-slice acquisition and mu lti-planar and MIP reconstructions. CONTRAST MATERIAL: Intravenous: Omnipaque 350 Contrast volume:70 mL COMPARISON: CT CT BRAIN NECK CTA from 07/22/[address] HEAD - STROKE PROTOCOL from 07/22/2021 FINDINGS: CT Head W/O and W contrast: Ventricles and Extra axial spaces: Normal in size and morphology for the patient's age. Hemorrhage: None. Cerebral parenchyma: Old left MCA infarct. No evidence of acute infarct or mass. Midline shift: None. Brainstem/Cerebellum: No acute findings.. Calvarium: Normal. Visualized Paranasal sinuses/Mastoids: Clear. Soft Tissues: Unremarkable. Enhancement: Normal. CTA Brain W: Internal Carotid Arteries: Petrous: Normal. Cavernous: Normal. Cerebral: Normal. Middle Cerebral Arteries: Right: No aneurysm, occlusion or significant stenosis. Left: No aneurysm, occlusion or significant stenosis. Anterior Cerebral Arteries: Right: No aneurysm, occlusion or significant stenosis. Left: No aneurysm, occlusion or significant stenosis. Posterior cerebral Arteries: Right: No aneurysm, occlusion or significant stenosis. Left: No aneurysm, occlusion or significant stenosis. Vertebral Arteries: Right: No aneurysm, occlusion or significant stenosis. Left: No aneurysm, occlusion or significant stenosis. Basilar Artery: No aneurysm, occlusion or significant stenosis. CTA Neck W: Common Carotid: Right: No dissection, occlusion or significant stenosis. Left: No dissection, occlusion or significant stenosis. External Carotid: Right: No dissection, occlusion or significant stenosis. Left: No dissection, occlusion or significant stenosis. Internal Carotid: No significant atherosclerotic changes. Right: Tortuous in the midportion. No dissection, occlusion or significant stenosis. Left: No dissection, occlusion or significant stenosis. Vertebral Artery: Right: No dissection, occlusion or significant stenosis. Left: No dissection, occlusion or significant stenosis. Lung Apices: No acute findings. Bones: No acute abnormality. Degenerative changes in the cervical spine. Soft Tissues: Normal. IMPRESSION: 1. CTA brain: No evidence of stenosis, occlusion or aneurysm. 2. Head CT: Old left MCA infarct. No acute abnormality. 3. CTA neck: Normal CTA examination of the neck. RADIATION DOSE DELIVERED: 2,164.44mGy.cm Total DLP DATA REPOSITORY: All CT scans at this facility are submitted to the National Radiology Data Registry (NRDR) Dose Index Registry (DIR) with the [employer] (ACR). RADIATION OPTIMIZATION: All CT scans at this facility use at least one of these dose optimization te chniques: automated exposure control; mA and/or kV adjustment per patient size (includes targeted exa ms where dose is matched to clinical indication); or iterative reconstruction.
--- NOTE | 2024-06-25 15:30 | RT.EKG_ITS ---
APPROVED REPORT Exam: Resting ECG Reason for Exam: Stroke eval Patient Location: E HR:62 bpm ECG Measurements Heart Rate 62 AXIS TX 159 P 54 QRSd 102 QRS 91 QT 391 T 33 QTc 396 Conclusion Sinus rhythm, rate 62 No interval abnormalities No STEMI No significant change from priors
--- NOTE | 2024-06-25 15:42 | W.ED.GENAD ---
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), LUKAS (obstructive sleep apnea) Primary Care Provider: Jake Love ED Provider: Ester Mckeon Home Meds and New Rx's Prescriptions: No Action trazodone 50 mg tablet 25 - 50 mg PO DAILY Qty: 30 2RF Rx Instructions: start with 1/2 tab; progress to 1 tab as needed prednisone 20 mg tablet 40 mg PO DAILY Qty: 10 0RF aspirin 81 mg tablet,delayed release (DR/EC) 81 mg PO DAILY Qty: 100 3RF albuterol sulfate 90 mcg/actuation HFA aerosol inhaler 2 puff Inhalation Q4H PRN Qty: 1 6RF Discharge Instructions Instructions: Headache, Adult ED Additional Instructions: You were seen in the emergency department today for evaluation of headache and vision changes. In our department you had a full physical examination performed, had a CT scan of your brain and neck that did not show any sign of stroke or injury to your blood vessels, and you met with a neurologist from [facility]. They recommend that you stop your prednisone and restart your baby aspirin, this can be done tonight. We have provided you with medications for your headache to good effect, and you can continue to maintain good hydration and use Tylenol and ibuprofen as needed for pain. They recommended that you get an MRI performed as an outpatient of your brain, this study has been ordered. You need to follow-up in the emergency department for the results of these studies. Additionally, you need to follow-up with the outpatient neurologist to discuss these daily headache and any other symptoms that change, worsen, or persist. Please follow-up with your primary care provider in the next few days to discuss this visit and any symptoms that change, worsen, or persist. Thank you for allowing us to be part of your care. Discharge Data Discharge Date/Time-TO BE ENTERED AT DEPARTURE: 06/25/24 18:54 HPI General Mode of arrival: ambulatory. Date/Time Provider Initiated Documentation: 06/25/24 15:31. Limitations to Documentation: no limitations. Information obtained by: patient, family and old records reviewed. 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 He is presenting today with 10 days of changes to his right eye vision, which occurred shortly after a neck hyperextension event during a yoga stretch. He reports that he felt like he strained a muscle at that time, and noted that his sensation on his right side of his face and right upper extremity were different. He states that he has not experienced any other trauma or injury. Since this event he has had daily headaches, was seen 2 days ago by her primary care provider and was started on prednisone for presumed radiculopathy/muscle strain. The patient reports that he typically has normal vision out of his right eye, but today his right eye is blurry and his vision not typical for him. He states that he is not experiencing any weakness, sensory changes are difficult to describe but not quite at his baseline, states that the symptoms have persisted for the last 10 days and have not changed or worsened. No other changes to his health or medications. Exam: Gen: awake and alert, in no apparent distress. Appears well nourished. HEENT: PERRL, EOMs full and without nystagmus. No visual field cuts, external ears and nose normal, mucous membranes moist. Neck: Supple, full range of motion, no observable masses, mild tenderness to the right paraspinal muscles. Lungs: No increased work of breathing CV: Heart with regular rate and rhythm. Strong and symmetrical radial pulses. Abdomen: Soft, nondistended MSK: No joint swelling, no redness. Full ROM without limitation, no external traumatic findings. Skin: No rashes or lesions to visualized skin. Normal color, warm, and dry. Neuro: Right-sided facial droop with forehead sparing appreciated, reported as baseline. Subjectively blurry vision right eye. Baseline right-sided facial sensory changes. 5/5 strength in all muscle groups x4 extremities. No pronator drift. Ambulates with steady gait. Baseline right-sided sensory changes upper and lower extremity. Psych: Appropriate for situation. MDM: This is a 54-year-old male patient presenting for evaluation of daily headaches, right sided vision changes, and worsening of his right-sided sensory changes. Differential includes but is not limited to stroke, intracranial hemorrhage, vascular abnormality including aneurysm and dissection, recrudescence. Considered musculoskeletal causes of the patient's neck pain, including sprain/strain, radiculopathy. Considered primary headache disturbance including migraine, cluster headache, tension headache. Considered ocular abnormalities including CRAO. The patient is well out of the tPA window with a last known well of 10 days ago. However, we we will proceed with imaging to include CTA of the brain and neck, EKG and laboratory analysis to include CBC, CMP, magnesium, troponin, and INR. ED Course: I independently interpreted the patient's EKG, which shows a sinus rhythm with a rate of 62 and no evidence for ischemia, interval abnormality, or ectopy. I independently interpreted the laboratory studies, which show no significant leukocytosis, anemia, or thrombocytopenia. The chemistry panel is without evidence of electrolyte abnormality, kidney dysfunction, or liver injury. INR 1.1, initial troponin negative. Independently reviewed the patient's CT scans, which redemonstrates his known left MCA territory stroke, unchanged, with no new vascular abnormality, intracranial hemorrhage, or new ischemic changes. The patient met with teleneurology, who do not feel that this represents a neurovascular event, are concerned with other primary headache disorders, recommended magnesium, which was provided intravenously and did improve his headache. They recommend nonemergent outpatient MRI within the next 1 to 2 weeks, as well as MRV of the brain. They also recommended ESR and CRP, and the patient already has a referral to establish with a neurologist and will ensure that he has rapid outpatient follow-up. They recommended stopping the prednisone and reinitiating baby aspirin. The outpatient MRI order was placed by myself, patient was instructed to return to the emergency department for results after this imaging study. At this time, the patient has had a full medical evaluation and is safe for discharge to home. They are hemodynamically stable, ambulatory, and tolerating PO. They are understanding of the follow-up plan and return precautions. They left our facility without incident. Ester Mckeon MD Related Data Home Medications ?Medication ?Instructions ?Recorded ?Confirmed aspirin 81 mg tablet,delayed 81 mg PO DAILY #100 tabs 12/17/21 06/25/24 release trazodone 50 mg tablet 25 - 50 mg (0.5 - 1 x 50 mg) PO 08/31/23 06/25/24 DAILY #30 tabs albuterol sulfate 90 mcg/actuation 2 puff inhalation Q4H PRN ##1 05/29/24 06/25/24 aerosol inhaler prednisone 20 mg tablet 40 mg (2 x 20 mg) PO DAILY #10 tabs 06/23/24 06/25/24 Previous Rx's ?Medication ?Instructions ?Recorded aspirin 81 mg tablet,delayed 81 mg PO DAILY #100 tabs 12/17/21 release trazodone 50 mg tablet 25 - 50 mg (0.5 - 1 x 50 mg) PO 08/31/23 DAILY #30 tabs albuterol sulfate 90 mcg/actuation 2 puff inhalation Q4H PRN ##1 05/29/24 aerosol inhaler prednisone 20 mg tablet 40 mg (2 x 20 mg) PO DAILY #10 tabs 06/23/24 Allergies Allergy/AdvReac Type Severity Reaction Status Date / Time cat dander Allergy Intermediate asthma Verified 06/25/24 15:35 like reaction feathers Allergy Intermediate asthma Verified 06/25/24 15:35 like reaction General Stated Complaint: CVA/TIA WILDER: 3 Course Vital Signs Vital signs: Vital Signs Temperature 37.1 C 06/25/24 15:32 Pulse 66 06/25/24 15:32 Respiratory Rate 16 06/25/24 15:32 Blood Pressure 147/98 H 06/25/24 15:32 Pulse Oximetry 98 06/25/24 15:32 Temperature 37.1 C 06/25/24 15:32 Pulse 66 06/25/24 15:32 Respiratory Rate 16 06/25/24 15:32 Blood Pressure 147/98 H 06/25/24 15:32 Pulse Oximetry 98 06/25/24 15:32 Pain Level 0 06/25/24 15:32 Medical Decision Making Quality:SDOH Health Related Social Needs: No Data to Display PFSH All Active Problems (Updated 06/25/24 @ 18:36 by Ester Mckeon MD) Headache, new daily persistent (NDPH) (Acute) Acute paronychia of finger of left hand (Acute) LUKAS (obstructive sleep apnea) (Chronic) Low back pain (Acute) Right hand weakness (Acute) 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) (Acute) Right hand weakness (Acute) Acute ischemic left MCA stroke (Acute) Left ACL tear (Acute) Tick bite (Acute) Fish it data architect/Forester, 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 Cummings [facility] Family History Father , 84 Stroke Brother Asthma Maternal Grandfather , 75 Neoplasm Paternal Grandfather Stroke Neoplasm Maternal Grandmother , 86 Neoplasm Paternal Grandmother , 87 Stroke Mother No problems noted. Sister No problems noted. Sister No problems noted. Sister No problems noted. Brother No problems noted. Brother No problems noted. Son No problems noted. Son No problems noted. Social History (Updated 09/06/23 @ 10:09 by Catina Mcclendon) Smoking/Tobacco Use Status: Former Tobacco Use Tobacco: How many years used: 10 Quit status: has quit before Second Hand Exposure: No Smoking risk assessment performed?: Yes Alcohol Intake: never Drug use: Rarely Substance use type: marijuana Caregiver/Support person: No Household members: spouse Housing: house Communication Needs: None Do you need help understanding health information?: Never Pets and animals: Yes Pets and animals: dog(s) Sexually active: Yes Do you think of yourself as: straight/heterosexual Current gender identity: male What is your relationship status?: living with partner How often do you talk on the phone with friends or family?: three or more times per week How often do you get together with friends or relatives?: three or more times per week How often do you attend gnosticism or gnosticism services?: 1-3 times per year Do you belong to any clubs or organized social groups?: yes Panel score (0-1 are the most socially isolated patients): 3 What type of physical activity do you participate in: walking Duration: 45-60 minutes/day Frequency: 5-6 times per week Petrona/Hoahaoism: No preference Special petrona needs: No Seatbelt use: always Helmet use: Yes Helmet use: always Drive intox or ride w/intox bicycle taxi driver: No Do you feel safe at home: Yes Do you feel safe in your relationship?: Yes
[2024-06-25] MEDS: Omnipaque 350 MG/ML 100 ML BTL IJ (15:44)
[2024-06-25] MEDS: Normal Saline - Diluent 50 ML VIAL IJ (15:45)
[2024-06-25 15:57] LABS: Abs Immature Grans 0.03 10^3/uL (0.0-0.06); Absolute Basophil Count 0.03 10^3/uL (0.0-0.2); Absolute Eosinophil Count 0.02 10^3/uL (0.0-0.7); Absolute Monocyte Count 0.26 10^3/uL (0.1-0.8); Basophils % 0.3 %; Eosinophils % 0.2 %; HCT 48.1 % (40.0-50.0); HGB 15.8 g/dL (13.5-17.5); Immature Grans % 0.3 %; Lymphocytes % 11.2 %; MCH 29.6 pg (27.0-33.0); MCHC 32.8 % (32.0-36.0); MCV 90 fL (80-95); MPV 9.5 fL (8.0-11.0); Monocytes % 2.3 %; Neutrophils % 85.7 %; Platelet Count 293 10^3/uL (130-400); RBC 5.33 10^6/uL (4.36-5.78); RDW 13.2 % (11.8-14.1); RDW-SD 43.8 fL; WBC 11.21 10^3/uL (4.4-10.8)
[2024-06-25 16:03] LABS: Absolute Lymphocyte Count 1.26 10^3/uL (1.2-3.4); Absolute Neutrophil Count 9.61 10^3/uL (1.2-6.7)
[2024-06-25 16:07] LABS: INR 1.1 (0.9-1.1)
[2024-06-25 16:14] LABS: ALT 44 U/L (16-63); AST 20 U/L (15-37); Albumin 3.9 g/dL (3.4-5.0); Alkaline Phosphatase 73 U/L (46-116); Anion Gap 7.9 mmol/L (3-11); BUN 17 mg/dL (7-18); Bilirubin, Total 0.3 mg/dL (0.2-1.0); CO2 29.1 mmol/L (21.0-32.0); CREATININE 1.2 mg/dL (0.70-1.30); Calcium 9.1 mg/dL (8.5-10.1); Chloride 106 mmol/L (98-107); Estimated GFR 72.76 (mL/min/1.73m2); Glucose 125 mg/dL (74-106); Magnesium 2.1 mg/dL; Potassium 3.7 mmol/L (3.5-5.1); Sodium 143 mmol/L (136-145); Troponin I 8 ng/L (<or=76)
--- NOTE | 2024-06-25 16:17 | DI.VRAD_ITS ---
PROCEDURE INFORMATION: Exam: CTA Head Without And With Contrast, Arteriography Exam date and time: 06/25/2024 3:50 PM Age: 54 years old Clinical indication: Stroke-like symptoms; Visual disturbance; Additional info: Stroke, HX L. Mca/carotid, now R. Eye vision change TECHNIQUE: Imaging protocol: Computed tomographic angiography of the head without and with contrast. Exam focused on the arteries. 3D rendering (Not supervised by radiologist): MIP and/or 3D reconstructed images were created by the technologist. Other technique: STROKE PROTOCOL was implemented. COMPARISON: CT BRAIN NECK CTA 07/22/2021 9:16 AM FINDINGS: ANTERIOR CIRCULATION: Right internal carotid artery: Intracranial segment is patent with no significant stenosis or occlusion. No aneurysm. Right middle cerebral artery: No occlusion or significant stenosis. No aneurysm. Right anterior cerebral artery: No occlusion or significant stenosis. No aneurysm. Left internal carotid artery: Intracranial segment is patent with no significant stenosis. No aneurysm. Left middle cerebral artery: No occlusion or significant stenosis. No aneurysm. Left anterior cerebral artery: No occlusion or significant stenosis. No aneurysm. POSTERIOR CIRCULATION: Right vertebral artery: No occlusion or significant stenosis. No aneurysm. Left vertebral artery: No occlusion or significant stenosis. No aneurysm. Basilar artery: No occlusion or significant stenosis. No aneurysm. Right posterior cerebral artery: No occlusion or significant stenosis. No aneurysm. Left posterior cerebral artery: No occlusion or significant stenosis. No aneurysm. HEAD: Brain: Chronic left MCA infarction No hemorrhage. Mild white matter disease. No mass effect. Cerebral ventricles: Normal. No ventriculomegaly. Bones: Unremarkable. No acute fracture. Paranasal sinuses: Visualized sinuses are normal. No fluid levels. Mastoid air cells: Visualized mastoids are normal. No mastoid effusion. Soft tissues: Unremarkable. IMPRESSION: 1. No large vessel occlusion. 2. No acute intracranial findings. Chronic left MCA infarction ASSESSMENT: ASPECTS ([place] Stroke Program Early CT Score) is 10 PROCEDURE INFORMATION: Exam: CTA Neck Without And With Contrast Exam date and time: 06/25/2024 3:50 PM Age: 54 years old Clinical indication: Stroke-like symptoms; Visual disturbance; Additional info: Stroke, HX L. Mca/carotid, now R. Eye vision change TECHNIQUE: Imaging protocol: Computed tomographic angiography of the neck without and with contrast. Exam focused on the cervical segments of the vasculature. 3D rendering (Not supervised by radiologist): MIP and/or 3D reconstructed images were created by the technologist. COMPARISON: CT BRAIN NECK CTA 07/22/2021 9:16 AM FINDINGS: Right common carotid artery: No stenosis. No dissection or occlusion. Right internal carotid artery: No stenosis of the extracranial segment. No dissection or occlusion. Right external carotid artery: No occlusion or stenosis of the origin. Left common carotid artery: No stenosis. No dissection or occlusion. Left internal carotid artery: No stenosis of the extracranial segment. No dissection or occlusion. Left external carotid artery: No occlusion or stenosis of the origin. Right vertebral artery: No stenosis. No dissection or occlusion. Left vertebral artery: No stenosis. No dissection or occlusion. Soft tissues: Normal. No significant soft tissue swelling. Bones/joints: No acute fracture. IMPRESSION: No stenosis or occlusion. REFERENCES: NASCET CRITERIA. The degree of stenosis in the cervical segment of the internal carotid artery is based on NASCET criteria. Normal is no stenosis. Mild is less than 50% stenosis. Moderate is 50-69% stenosis. Severe is 70% to 99% stenosis. Total occlusion is no detectable patent lumen. Dictated and Authenticated by: Ruben Salinas MD. Orderin [facility]. Shailesh Norman MD
[2024-06-25 17:08] LABS: Troponin I 4 ng/L (<or=76)
[2024-06-25] MEDS: MAGNESIUM SULFATE 2 GM/50 ML BAG IV_INF (17:57)
--- NOTE | 2024-06-25 18:03 | NUR.NOTE ---
Nursing Note: Outpatient DI order for MRI Brain W/O & MRV Brain faxed to Radiology on 06/25/2024 at 1803
[2024-06-25 18:45] LABS: Lab Add On Test DONE
[2024-06-25 18:52] LABS: ESR 2 mm/hr (0-20)
[2024-06-25 18:56] LABS: C-Reactive Protein < 0.50 mg/dL (<or=0.5)
== END 2024-06-25 18:54 | disposition home or self-care (01) ==
PROVIDERS: Emergency Provider Emergency Medicine; PCP Family Medicine
DX: R51.9 Headache, unspecified (principal); I69.320 Aphasia following cerebral infarction; G47.33 Obstructive sleep apnea (adult) (pediatric); Z79.82 Long term (current) use of aspirin; Z87.891 Personal history of nicotine dependence
CPT/HCPCS: 36415; 70496; 70498; 80053; 85652; 93005; 96365; 99285; 83735; 84484; 85025; 85610; 86140; 93010; 99284; J3475; J3490

== ENCOUNTER 2024-07-17 00:12 | Outpatient (CLI) | payer BC, SELFPAY ==
--- NOTE | 2024-07-17 07:30 | DI.MRI_ITS ---
Exam(s) MR BRAIN WO EXAM: MR BRAIN WO CLINICAL HISTORY: new daily persistent headaches, h/o stroke TECHNIQUE: Multiplanar multisequence MRI of the brain was performed. COMPARISON: CT CT BRAIN NECK CTA from 06/25/2024 MR MR ANGIO BRAIN WO from 07/17/2024 FINDINGS: VENTRICLES AND EXTRA AXIAL SPACES: Normal in size and morphology for the patient's age. MIDLINE SHIFT: None. CEREBRAL PARENCHYMA: Large area of encephalomalacia again noted in the left posterior frontal lobe. No focus of restricted diffusion to suggest acute infarct. No space-occupying lesion identified. . M ild scattered foci of high signal in the white matter consistent with sequela of chronic microvascula r disease. BRAINSTEM/CEREBELLUM: Normal. VISUALIZED PARANASAL SINUSES: Clear. MASTOIDS:Clear. Vasculature: Normal flow void. PITUITARY GLAND: Unremarkable. ORBITS: Unremarkable. IMPRESSION: Old infarct in left middle cerebral artery distribution. No acute abnormalities identified. DATA REPOSITORY:
--- NOTE | 2024-07-17 07:30 | DI.MRI_ITS ---
Exam(s) MR ANGIO BRAIN WO CLINICAL HISTORY: new daily persistent headaches,G44.52,h/o cva. TECHNIQUE: 3D [id number] study was performed without contrast. COMPARISON: None. FINDINGS: Carotid Arteries: Petrous: Normal. Cavernous: Normal. Cerebral: Normal. Middle Cerebral Arteries: Right: No aneurysm or significant stenosis. Left: No aneurysm or significant stenosis. Anterior Cerebral Arteries: Right: Diminutive A1 segment, a normal variant. Similar to previous exams. No aneurysm. Left: No aneurysm or significant stenosis. Posterior cerebral arteries: Right: No aneurysm or significant stenosis Left: No aneurysm or significant stenosis Vertebral Arteries: Right: No aneurysm or significant stenosis. No dissection. Left: No aneurysm or significant stenosis. No dissection.. Basilar Artery: No aneurysm or significant stenosis. Small Vessels: No evidence of beading. IMPRESSION: Diminutive A1 segment, normal variant. No evidence of aneurysm. DATA REPOSITORY:
== END 2024-07-17 00:32 ==
LOC: DI 00:12
PROVIDERS: PCP Family Medicine; Visit Provider Family Medicine
DX: G44.52 New daily persistent headache (NDPH) (principal)
CPT/HCPCS: 70544; 70551

== ENCOUNTER 2024-09-05 09:53 | Outpatient (CLI) | payer BC, SELFPAY ==
[2024-09-05 12:54] LABS: Calculated LDL 97 mg/dL (<100); Cholesterol 156 mg/dL (<200); HDL Cholesterol 42 mg/dL (>or=40); Triglyceride 86 mg/dL (<150)
[2024-09-05 23:14] LABS: PSA, Screening 0.8 ng/mL (<=3.5)
[2024-09-06 10:07] LABS: HIV-1/2 Ag & Ab Screen Negative (Negative)
== END 2024-09-05 09:54 | disposition home or self-care (01) ==
LOC: LOS 09:53
PROVIDERS: PCP Family Medicine; Referring Provider Family Medicine; Visit Provider Family Medicine
DX: Z00.00 Encounter for general adult medical examination without abnormal findings (principal); Z12.5 Encounter for screening for malignant neoplasm of prostate; E78.5 Hyperlipidemia, unspecified
CPT/HCPCS: 36415; 80061; 84153; 87389